=== PATIENT | female | born 1985 | race American Indian/Alaskan Native ===

== ENCOUNTER 2017-05-15 08:18 | Emergency (ER) | payer SELFPAY ==
[2017-05-15 09:05] LABS: Basophils % (Auto) 0.2 % (0.0-1.8); Eosinophils % (Auto) 0.5 % (0.0-4.3); Hematocrit 41.4 % (30.3-42.9); Hemoglobin 13.5 gm/dl (10.1-14.3); Mean Corpuscular HGB Conc 33 % (30-34); Mean Corpuscular Volume 79 fl (79-97); Platelet Count 196 K/mm3 (140-440); Red Blood Count 5.24 M/mm3 (3.65-5.03); Red Cell Distribution Width 15.9 % (13.2-15.2); White Blood Count 7.9 K/mm3 (4.5-11.0)
[2017-05-15 09:10] LABS: Mean Corpuscular Hemoglobin 26 pg (28-32)
[2017-05-15 09:21] LABS: Alanine Aminotransferase 18 units/L (7-56); Albumin 3.9 g/dL (3.9-5); Albumin/Globulin Ratio 1.1 %; Alkaline Phosphatase 55 units/L (35-129); Anion Gap 19 mmol/L; BUN/Creatinine Ratio 16.66; Blood Urea Nitrogen 10 mg/dL (7-17); Calcium 9.1 mg/dL (8.4-10.2); Carbon Dioxide 24 mmol/L (22-30); Chloride 97.9 mmol/L (98-107); Glucose 102 mg/dL (65-100); Lipase 15 units/L (13-60); Potassium 3.6 mmol/L (3.6-5.0); Sodium 137 mmol/L (137-145); Total Protein 7.5 g/dL (6.3-8.2)
[2017-05-15] MEDS ORDERED: NACL 0.9% 1000 ML 1,000 ML ONE (09:34)
[2017-05-15] MEDS ORDERED: ZOFRAN IV ONE (09:38)
[2017-05-15] MEDS ORDERED: TORADOL IV ONE (09:38)
[2017-05-15] MEDS ORDERED: NACL 0.9% 1000 ML 1,000 ML IV ONE ×2 (09:38)
[2017-05-15] MEDS ORDERED: DILAUDID IV ONE (11:37)
--- NOTE | 2017-05-15 11:57 | Cat Scan Report ---
CT ABDOMEN AND PELVIS WITH CONTRAST INDICATION: Abdominal pain, fibroid, nausea. COMPARISON: None similar at this institution. FINDINGS: Abdomen and pelvis CT performed following intravenous administration of 100 cc of Omnipaque 300. LUNG BASES: Mild bibasilar dependent atelectasis. Nonspecific distal esophageal wall prominence/thickening, not excluded for gastroesophageal reflux and/or hiatal hernia, amongst others. ABDOMEN: Innumerable fibroids with markedly enlarged uterus noted arising to the upper abdomen. It measures approximately 10 cm AP x 20 cm transverse on axial image 56, series 2 and 26 cm craniocaudal. Bowel displacement and some compression upon other structures noted, including mild bilateral hydroureteronephrosis. Liver, spleen, gallbladder, pancreas, adrenals, abdominal aorta and IVC within normal limits. Retroaortic left renal vein. No ascites or significant adenopathy. Nonopacified GI tract evaluation limited, though grossly nonobstructive. Mild to moderate colonic stool/possible constipation. PELVIS: In addition to above, urinary bladder and the rectosigmoid appear within normal limits. No free fluid or significant adenopathy. Bilateral SI joint degenerative bridging inferiorly with joint space obliteration. CONCLUSION: 1. Extensive fibroids with significantly enlarged uterus extending into the upper abdomen noted, as detailed above. 2. Mild bilateral hydroureteronephrosis and few other incidental findings, as above. Thank you for the opportunity to participate in this patient's care.
[2017-05-15 12:40] LABS: Bilirubin,Urine NEG (Negative); Blood,Urine NEG (Negative); Ketones,Urine 80 mg/dL (Negative); Leukocyte Esterase,Urine NEG (Negative); Mucus,Urine 1+ /HPF; Nitrite,Urine NEG (Negative); Protein,Urine <15 mg/dL mg/dL (Negative); Urobilinogen,Urine < 2.0 mg/dL (<2.0)
--- NOTE | 2017-05-15 12:57 | Emergency Department Report ---
ED Abdominal Pain HPI - General Chief Complaint: Abdominal Pain Stated Complaint: ABD PAIN/SHARP Time Seen by Provider: 05/15/17 09:30 Source: patient, family Mode of arrival: Wheelchair Limitations: No Limitations - History of Present Illness Initial Comments: 31-year-old female a past medical history of fibroids presents to the hospital complaints of abdominal pain this a.m. Pain is severe rated 10/10 in intensity , sharp, constant, worse with palpation. No alleviating factors. Patient is a nausea without vomiting. No complaints of fever or dysuria. Patient also feels pressure in her rectum. Patient has a history of fibroids causing a "6 month uterus". Last worked up 2 years ago and hysterectomy was suggested. Patient does not have a POOL INSTALLER doctor currently. She denies vaginal bleeding. Reproducible patient had dental work and had a pruritic reaction to Tylenol with codeine which she discontinued. She is currently taking amoxicillin and Motrin. Severity scale (0 -10): 8 - Related Data Home Medications Medication Instructions Recorded Confirmed Last Taken Amoxicillin [Trimox CAP] 500 mg PO Q8H 05/15/17 05/15/17 05/14/17 Ibuprofen [Motrin] 400 mg PO Q8H PRN 05/15/17 05/15/17 05/14/17 Previous Rx's Medication Instructions Recorded Last Taken Type Docusate Sodium [Colace] 100 mg PO BID #20 capsule 05/15/17 Unknown Rx Ondansetron [Zofran Odt] 4 mg PO Q8HR #20 tab.rapdis 05/15/17 Unknown Rx oxyCODONE /ACETAMINOPHEN [Percocet 1 tab PO Q6HR PRN #20 tablet 05/15/17 Unknown Rx 5/325] Allergies Allergy/AdvReac Type Severity Reaction Status Date / Time codeine Allergy Itching Verified 05/15/17 08:20 ED Review of Systems ROS: Stated complaint: ABD PAIN/SHARP Other details as noted in HPI Comment: All other systems reviewed and negative Other: Constitutional: No fevers chills Eyes: No eye pain visual changes ENT: No ear pain or throat pain Neck: Denies pain Respiratory: Denies cough wheezing shortness of breath Cardiovascular: Denies chest pain, palpitations, syncope GI: As per HPI : Denies dysuria Musculoskeletal: Denies back pain Skin: Denies rash, lesions, erythema Neurologic: Denies headache, numbness, weakness Psychiatric: Denies suicidal ideation, hallucinations ED Past Medical Hx - Past Medical History Previous Medical History?: Yes Additional medical history: FIBRIODS - Surgical History Past Surgical History?: No - Social History Smoking Status: Never Smoker Substance Use Type: None - Medications Home Medications: Home Medications Medication Instructions Recorded Confirmed Last Taken Type Amoxicillin [Trimox CAP] 500 mg PO Q8H 05/15/17 05/15/17 05/14/17 History Docusate Sodium [Colace] 100 mg PO BID #20 capsule 05/15/17 Unknown Rx Ibuprofen [Motrin] 400 mg PO Q8H PRN 05/15/17 05/15/17 05/14/17 History Ondansetron [Zofran Odt] 4 mg PO Q8HR #20 tab.rapdis 05/15/17 Unknown Rx oxyCODONE /ACETAMINOPHEN [Percocet 1 tab PO Q6HR PRN #20 tablet 05/15/17 Unknown Rx 5/325] ED Physical Exam - General Limitations: No Limitations - Other Other exam information: General: No limitations, patient is alert in no acute distress Head exam: Atraumatic, normocephalic Eyes exam: Normal appearance, pupils equal reactive to light, extraocular movements intact ENT: Moist mucous membrane, normal oropharynx Neck exam: Normal inspection, full range of motion, no meningismus nontender Respiratory exam: Clear to auscultation bilateral, no wheezes, rales, crackles Cardiovascular: Normal rate and rhythm, normal heart sounds Abdomen: Firm abdomen with large uterus that is diffusely tender. Extending above the umbilicus. No rebound or guarding. Extremity: Full range of motion normal inspection no deformity Back: Normal Inspection, full range of motion, no tenderness Neurologic: Alert, oriented x3, cranial nerves intact, no motor or sensory deficit Psychiatric: normal affect, normal mood Skin: Warm, dry, intact ED Course Vital Signs 05/15/17 05/15/17 05/15/17 08:22 09:55 10:00 Temperature 97.4 F L Pulse Rate 60 75 Respiratory 16 22 16 Rate Blood Pressure 86/51 Blood Pressure 103/64 [Right] O2 Sat by Pulse 100 98 100 Oximetry 05/15/17 05/15/17 11:42 14:05 Temperature Pulse Rate 84 Respiratory 16 16 Rate Blood Pressure Blood Pressure 103/65 [Right] O2 Sat by Pulse 99 Oximetry - Reevaluation(s) Reevaluation #1: 05/15/17 14:48 Patient's pain improved after Toradol and Dilaudid. Patient given a Percocet prior to discharge observed. No reaction. She will be discharged on this medication - Consultations Consultation #1: 05/15/17 12:[address] Gallegos on-call [facility]OL INSTALL[facility] doctor. Recommends that patient follow-up tomorrow at 3 PM in the office to begin her workup and treatment ED Medical Decision Making - Lab Data Result diagrams: 05/15/17 08:35 05/15/17 08:35 Lab Results 05/15/17 05/15/17 05/15/17 Range/Units 08:29 08:35 08:35 WBC 7.9 (4.5-11.0) K/mm3 RBC 5.24 H (3.65-5.03) M/mm3 Hgb 13.5 (10.1-14.3) gm/dl Hct 41.4 (30.3-42.9) % MCV 79 (79-97) fl MCH 26 L (28-32) pg MCHC 33 (30-34) % RDW 15.9 H (13.2-15.2) % Plt Count 196 (140-440) K/mm3 Lymph % (Auto) 14.2 (13.4-35.0) % Pepin % (Auto) 5.7 (0.0-7.3) % Eos % (Auto) 0.5 (0.0-4.3) % Baso % (Auto) 0.2 (0.0-1.8) % Lymph # 1.1 L (1.2-5.4) K/mm3 Pepin # 0.5 (0.0-0.8) K/mm3 Eos # 0.0 (0.0-0.4) K/mm3 Baso # 0.0 (0.0-0.1) K/mm3 Seg Neutrophils % 79.4 H (40.0-70.0) % Seg Neutrophils # 6.3 (1.8-7.7) K/mm3 Sodium 137 (137-145) mmol/L Potassium 3.6 (3.6-5.0) mmol/L Chloride 97.9 L (98-107) mmol/L Carbon Dioxide 24 (22-30) mmol/L Anion Gap 19 mmol/L BUN 10 (7-17) mg/dL Creatinine 0.6 L (0.7-1.2) mg/dL Estimated GFR > 60 ml/min BUN/Creatinine Ratio 16.66 % Glucose 102 H (65-100) mg/dL Calcium 9.1 (8.4-10.2) mg/dL Total Bilirubin 0.30 (0.1-1.2) mg/dL ALT 18 (7-56) units/L Alkaline Phosphatase 55 (35-129) units/L Total Protein 7.5 (6.3-8.2) g/dL Albumin 3.9 (3.9-5) g/dL Albumin/Globulin Ratio 1.1 % Lipase 15 (13-60) units/L HCG, Qual (Negative) HCG, Quant (0-4) mIU/mL Urine Color Yellow (Yellow) Urine Turbidity Clear (Clear) Urine pH 6.0 (5.0-7.0) Ur Specific [place] 1.028 (1.003-1.030) Urine Protein <15 mg/dl (Negative) mg/dL Urine Glucose (UA) Neg (Negative) mg/dL Urine Ketones 80 (Negative) mg/dL Urine Blood Neg (Negative) Urine Nitrite Neg (Negative) Ur Reducing Substances Not Reportable Urine Bilirubin Neg (Negative) Urine Ictotest Not Reportable Urine Urobilinogen < 2.0 (<2.0) mg/dL Ur Leukocyte Esterase Neg (Negative) Urine WBC (Auto) 2.0 (0.0-6.0) /HPF Urine RBC (Auto) 2.0 (0.0-6.0) /HPF U Epithel Cells (Auto) 1.0 (0-13.0) /HPF Urine Mucus 1+ /HPF Urine HCG, Qual Negative (Negative) 05/15/17 05/15/17 Range/Units 09:45 09:45 WBC (4.5-11.0) K/mm3 RBC (3.65-5.03) M/mm3 Hgb (10.1-14.3) gm/dl Hct (30.3-42.9) % MCV (79-97) fl MCH (28-32) pg MCHC (30-34) % RDW (13.2-15.2) % Plt Count (140-440) K/mm3 Lymph % (Auto) (13.4-35.0) % Pepin % (Auto) (0.0-7.3) % Eos % (Auto) (0.0-4.3) % Baso % (Auto) (0.0-1.8) % Lymph # (1.2-5.4) K/mm3 Pepin # (0.0-0.8) K/mm3 Eos # (0.0-0.4) K/mm3 Baso # (0.0-0.1) K/mm3 Seg Neutrophils % (40.0-70.0) % Seg Neutrophils # (1.8-7.7) K/mm3 Sodium (137-145) mmol/L Potassium (3.6-5.0) mmol/L Chloride (98-107) mmol/L Carbon Dioxide (22-30) mmol/L Anion Gap mmol/L BUN (7-17) mg/dL Creatinine (0.7-1.2) mg/dL Estimated GFR ml/min BUN/Creatinine Ratio % Glucose (65-100) mg/dL Calcium (8.4-10.2) mg/dL Total Bilirubin (0.1-1.2) mg/dL ALT (7-56) units/L Alkaline Phosphatase (35-129) units/L Total Protein (6.3-8.2) g/dL Albumin (3.9-5) g/dL Albumin/Globulin Ratio % Lipase (13-60) units/L HCG, Qual Negative (Negative) HCG, Quant < 2 (0-4) mIU/mL Urine Color (Yellow) Urine Turbidity (Clear) Urine pH (5.0-7.0) Ur Specific [place] (1.003-1.030) Urine Protein (Negative) mg/dL Urine Glucose (UA) (Negative) mg/dL Urine Ketones (Negative) mg/dL Urine Blood (Negative) Urine Nitrite (Negative) Ur Reducing Substances Urine Bilirubin (Negative) Urine Ictotest Urine Urobilinogen (<2.0) mg/dL Ur Leukocyte Esterase (Negative) Urine WBC (Auto) (0.0-6.0) /HPF Urine RBC (Auto) (0.0-6.0) /HPF U Epithel Cells (Auto) (0-13.0) /HPF Urine Mucus /HPF Urine HCG, Qual (Negative) - Radiology Data Radiology results: report reviewed CT abdomen and pelvis IV contrast: Extensive fibrosis with significant large uterus extending into the upper abdomen. Mild bilateral hydroureteronephrosis. Mild to moderate colonic stool/constipation - Medical Decision Making Vital signs improved. BP improved with IV fluids. Pain improved with Toradol and Dilaudid. Patient will be placed on a narcotic for pain, stool softener, and encouraged to follow with POOL INST[employer]ER tomorrow. - Differential Diagnosis ectopic, , fibroid uterus, degenerative fibroid Critical Care Time: No Critical care attestation.: If time is entered above; I have spent that time in minutes in the direct care of this critically ill patient, excluding procedure time. ED Disposition Clinical Impression: Fibroids, Abdominal pain, Hydroureteronephrosis, Dehydration Disposition: TO HOME OR SELFCARE Is pt being admited?: No Condition: Stable Instructions: Abdominal Pain (ED), Uterine Fibroids (ED) Additional Instructions: Take the medications as prescribed. Follow-up with the POOL INSTALLER doctor tomorrow at 3 PM. You have an appointment scheduled. Return if symptoms worsen Prescriptions: Docusate Sodium [Colace] 100 mg PO BID #20 capsule Ondansetron [Zofran Odt] 4 mg PO Q8HR #20 tab.rapdis oxyCODONE /ACETAMINOPHEN [Percocet 5/325] 1 tab PO Q6HR PRN #20 tablet PRN Reason: Pain Referrals: SHERLY GALLEGOS MD [Staff Physician] - 05/16/17 3:00 pm Time of Disposition: 14:00 (Dr Salcido/hosp)
[2017-05-15] MEDS ORDERED: PERCOCET 5/325 PO ONE (13:04)
[2017-05-15 15:05] VITALS: BP 94/54
== END 2017-05-15 15:04 | disposition home or self-care (01) ==
LOC: ED 08:18
DX: D21.9 Benign neoplasm of connective and other soft tissue, unspecified (principal); N13.30 Unspecified hydronephrosis; E86.0 Dehydration
CPT/HCPCS: 36415; 74177; 80053; 81001; 81025; 83690; 84702; 84703; 85025; 96361; 96374; 96375; 99284; J1170; J1885; J2405; J7030; Q9967